=== PATIENT | male | born 1995 | race Caucasian/White ===

== ENCOUNTER 2020-10-23 19:20 | Emergency (ER) | payer OTHER ==
[2020-10-23 20:14] LABS: Bilirubin Neg (Negative); Blood, Urine Negative (Negative); Clarity Clear (Clear); Glucose, Urine (Dipstick) Normal (Negative); Ketone, Urine Negative (Negative); Leukocyte Negative (Negative); Nitrite Negative (Negative); Protein, Urine (Dipstick) Negative (Neg-Trace); Urobilinogen Normal mg/dL (Less than 2)
== END 2020-10-23 20:48 | disposition home or self-care (01) ==
LOC: CSHERS 19:20
DX: R10.13 Epigastric pain (principal); R11.0 Nausea
CPT/HCPCS: 81003; 99284